=== PATIENT | female | born 1965 | race Caucasian/White ===

== ENCOUNTER 2017-03-05 18:40 | Emergency (ER) | payer OTHER ==
[~2017-03-05] VITALS: Ht 162.6 cm; Wt 127.8 kg
[~2017-03-05 18:40] MED LIST: ADULT LOW DOSE81 M1 PO
[2017-03-05 19:26] LABS: HEMATOCRIT 44.3 % (36.0-46.0); MCH 26.7 PG (29.0-34.0); MCHC 32.1 G/DL (30.0-36.0); MCV 83.4 FL (83-99); MEAN PLAT.VOLUME 9.2 uM^3 (9.5-12.4); PLATELET COUNT 234 K/uL (156-360); RBC DIS.WIDTH-CV 13.3 % (11.8-14.6); RBC DIS.WIDTH-SD 40.5 % (39-53); RED BLOOD COUNT 5.31 M/uL (3.80-5.20); WHITE BLOOD COUNT 4.7 K/uL (4.1-10.2)
[2017-03-05 19:34] LABS: CHLORIDE 106 mEq/L (99-109); POTASSIUM 3.7 mEq/L (3.7-5.4); SODIUM 141 mEq/L (136-147)
[2017-03-05 19:36] LABS: GLUCOSE 95 mg/dL (70-99)
[2017-03-05 19:37] LABS: ANION GAP 8 MEQ/L (2-14)
[2017-03-05 19:40] LABS: GFR ESTIMATE (CALCULATED) > 59 mL/min/
[2017-03-05 19:41] LABS: UREA NITROGEN (BUN) 16 mg/dL (9-23)
[2017-03-05 20:20] LABS: TROP-I INTERPRETATION NEGATIVE; TROPONIN-I < 0.01 ng/mL (0.0-0.30)
[2017-03-05] MEDS ORDERED: ANTIVERT25 MG PO (21:27)
[2017-03-05 21:53] VITALS: BP 136/95
[2017-03-05 21:53] LABS: ADD MIUA? YES; BILIRUBIN NEGATIVE; BLOOD NEGATIVE; GLUCOSE (STRIP) NEGATIVE; KETONES NEGATIVE; LEUKOCYTES TRACE; NITRITE NEGATIVE; PROTEIN (STRIP) NEGATIVE; SPECIFIC GRAVITY 1.026 (1.000-1.030); UROBILINOGEN 0.2 MG/DL (0.2-1.0)
[2017-03-05 21:56] LABS: COLOR AMBER ((YELLOW))
[2017-03-05 22:00] LABS: BACTERIA RARE /HPF; EPITHELIAL CELLS 1+ /HPF; HYALINE CASTS 0-5 /LPF; MUCUS TRACE /LPF; RED BLOOD CELLS 0-5 /HPF (0-5); UCUL ADDED? NO
== END 2017-03-05 21:54 | disposition home or self-care (01) ==
LOC: EME 18:40
PROVIDERS: Physician Assistant
DX: R42 Dizziness and giddiness (principal); Z87.891 Personal history of nicotine dependence
CPT/HCPCS: 70450; 80048; 81003; 84484; 85027; 93005; 99281; 99283